=== PATIENT | female | born 1995 | race Caucasian/White ===

== ENCOUNTER 2020-03-02 11:00 | Emergency (ER) | payer BC ==
[~2020-03-02] VITALS: Ht 172.7 cm; Wt 60.8 kg
[2020-03-02] MEDS ORDERED: ACETAMINOPHEN ES 500 MG TABLET ONE (11:24)
--- NOTE | 2020-03-02 11:24 | NUR ---
COUGH, CONGESTION, WITH MIDSTERNAL CHEST PAIN SINCE LAST NIGHT. "IT'S COLD WHEN I BREATHE IN". VISIBLY UPSET, APPEARS ANXIOUS. DENIES PANIC ATTACK. AFEBRILE. NO ACUTE DISTRESS NOTED. RR EVEN AND UNLABORED ON RA. ON MONITOR AND READY FOR EVAL.
[2020-03-02] MEDS ORDERED: ACETAMINOPHEN ES 500 MG TABLET PO ONE (11:30)
--- NOTE | 2020-03-02 11:48 | NUR ---
WAIVER SIGNED AND IN CHART
--- NOTE | 2020-03-02 12:06 | NUR ---
ENVIRONMENTAL CONSTRUCTION ENGINEER AT BEDSIDE FOR XRAY
--- NOTE | 2020-03-02 12:30 | NUR ---
Patient discharged to home in stable condition. Written and verbal after care instructions given. Patient verbalizes understanding of instruction.
[2020-03-02 12:31] VITALS: BP 123/84
== END 2020-03-02 12:32 | disposition home or self-care (01) ==
LOC: ER 11:10
DX: F41.0 Panic disorder [episodic paroxysmal anxiety] (principal); R07.89 Other chest pain
CPT/HCPCS: 71045-TC